=== PATIENT | female | born 1970 | race Caucasian/White ===

== ENCOUNTER → 2022-08-08 16:12 | Outpatient (CLI) | payer BC, SELFPAY | PROVIDERS: PCP Physician Assistant; Visit Provider Physician Assistant | DX: Z20.822 Contact with and (suspected) exposure to COVID-19 (principal); R05.8 Other specified cough; J02.9 Acute pharyngitis, unspecified | CPT/HCPCS: C9803; U0003; U0005 ==

== ENCOUNTER → 2022-11-13 10:02 | Outpatient (CLI) | payer BC, SELFPAY ==
[2022-11-13 16:05] LABS: Alanine Aminotransferase 29 U/L (12-78); Albumin Level 4.5 g/dl (3.5-5.0); Albumin/Globulin Ratio 1.7 (1.1-1.8); Alkaline Phosphatase 93 U/L (38-126); Anion Gap 12.6 mEq/L (5-15); Aspartate Amino Transferase 29 U/L (14-36); Bilirubin,Total 0.5 mg/dl (0.2-1.3); Blood Urea Nitrogen 16 mg/dl (7-17); Carbon Dioxide 25 mmol/L (22.0-30.0); Chloride 104 mmol/L (98-107); Chol/HDL Ratio 5.8 (1-3.5); Cholesterol 272 mg/dl (140-200); Estimated Glomerular Filt Rate 76 ml/min (>60); GFR (African American) 92 ML/MIN (>60); Globulin 2.7 g/dL (1.3-3.2); Glucose 103 mg/dl (74-100); HDL Cholesterol 47 mg/dl (40-60); Potassium 4.6 mmoL/L (3.5-5.1); Sodium 137 mmol/L (136-145); Total Protein,Serum 7.2 g/dl (6.3-8.2); Triglycerides 174 mg/dl (30-150); VLDL Cholesterol 35 mg/dL (0-40)
[2022-11-13 16:16] LABS: Direct LDL Cholesterol 185.78 mg/dL (100-129)
[2022-11-13 16:26] LABS: 25-OH Vitamin D, Total 17.7 ng/mL (30-100)
[2022-11-13 16:39] LABS: Thyroid Stimulating Hormone 1.16 uIU/mL (0.465-4.68)
[2022-11-13 17:07] LABS: Basophils # 0.1 K/mm3 (0-0.2); Basophils % 1.3 % (0.1-2.0); Eosinophils # 0.5 K/mm3 (0.0-0.4); Eosinophils % 5.6 % (0.1-12.0); Hematocrit 42.8 % (37.0-47.0); Hemoglobin 13.3 g/dL (12.2-16.2); Lymphocytes # 2.3 K/mm3 (0.7-4.5); Lymphocytes % 25.9 % (10-50); Mean Corpuscular Hemoglobin 26.9 pg (27.0-31.2); Mean Corpuscular Volume 86.8 fl (81-99); Mean Platelet Volume 8.4 fl (7.4-10.4); Monocytes # 0.6 K/mm3 (0.1-1.0); Monocytes % 6.5 % (1.7-9.3); Neutrophils # 5.4 K/mm3 (1.8-7.8); Neutrophils % 60.7 % (37.0-80.0); Platelet Count 509 K/mm3 (142-424); Red Blood Count 4.93 M/mm3 (4.20-5.40); Red Cell Distribution Width 14.7 % (11.5-17.5); White Blood Count 8.8 K/mm3 (4.8-10.8)
[2022-11-15 14:27] LABS: Peripheral Smear Review Scanned Results
== END ==
LOC: LAB.DROPOF 15:28
PROVIDERS: PCP Physician Assistant; Visit Provider Physician Assistant
DX: E55.9 Vitamin D deficiency, unspecified (principal); E66.9 Obesity, unspecified; Z68.38 Body mass index [BMI] 38.0-38.9, adult
CPT/HCPCS: 80053; 80061; 82306; 84443; 85025

== ENCOUNTER → 2023-01-16 08:36 | Outpatient (CLI) | payer BC, SELFPAY ==
[2023-01-16 09:39] LABS: Basophils # 0.1 K/mm3 (0-0.2); Eosinophils # 0.4 K/mm3 (0.0-0.4); Hematocrit 39.2 % (37.0-47.0); Hemoglobin 12.4 g/dL (12.2-16.2); Lymphocytes % 15.2 % (10-50); Mean Corpuscular HGB Conc 31.7 g/dL (31.8-35.4); Mean Corpuscular Hemoglobin 28.1 pg (27.0-31.2); Mean Corpuscular Volume 88.5 fl (81-99); Mean Platelet Volume 7.2 fl (7.4-10.4); Monocytes # 0.7 K/mm3 (0.1-1.0); Monocytes % 5.2 % (1.7-9.3); Neutrophils % 75.6 % (37.0-80.0); Platelet Count 489 K/mm3 (142-424); Red Blood Count 4.43 M/mm3 (4.20-5.40); Red Cell Distribution Width 14.9 % (11.5-17.5); White Blood Count 13.2 K/mm3 (4.8-10.8)
[2023-01-16 10:11] LABS: Hemoglobin A1C 6.8 % (4.0-6.0)
[2023-01-16 10:20] LABS: Alanine Aminotransferase 16 U/L (12-78); Albumin Level 3.6 g/dl (3.5-5.0); Albumin/Globulin Ratio 1.5 (1.1-1.8); Alkaline Phosphatase 92 U/L (38-126); Anion Gap 7.3 mEq/L (5-15); Aspartate Amino Transferase 19 U/L (14-36); Bilirubin,Total 0.4 mg/dl (0.2-1.3); Blood Urea Nitrogen 9 mg/dl (7-17); Calcium 9.2 mg/dl (8.4-10.2); Carbon Dioxide 27 mmol/L (22.0-30.0); Chloride 103 mmol/L (98-107); Chol/HDL Ratio 5.2 (1-3.5); Cholesterol 218 mg/dl (140-200); Estimated Glomerular Filt Rate 88 ml/min (>60); GFR (African American) 106 ML/MIN (>60); Globulin 2.4 g/dL (1.3-3.2); Glucose 112 mg/dl (74-100); HDL Cholesterol 42 mg/dl (40-60); Potassium 4.3 mmoL/L (3.5-5.1); Sodium 133 mmol/L (136-145); Triglycerides 226 mg/dl (30-150); VLDL Cholesterol 45 mg/dL (0-40)
[2023-01-16 10:32] LABS: Direct LDL Cholesterol 145.27 mg/dL (100-129)
== END ==
LOC: LAB 08:37
PROVIDERS: PCP Emergency Medicine; Visit Provider Nurse Practitioner Family
DX: R73.9 Hyperglycemia, unspecified (principal); Z79.899 Other long term (current) drug therapy
CPT/HCPCS: 36415; 80053; 80061; 83036; 85025

== ENCOUNTER → 2023-03-07 09:10 | Outpatient (CLI) | payer BC, SELFPAY ==
[2023-03-07 09:50] LABS: Basophils # 0.1 K/mm3 (0-0.2); Basophils % 1.3 % (0.1-2.0); Eosinophils # 0.6 K/mm3 (0.0-0.4); Eosinophils % 6.4 % (0.1-12.0); Hematocrit 37.9 % (37.0-47.0); Hemoglobin 12.1 g/dL (12.2-16.2); Lymphocytes # 2.6 K/mm3 (0.7-4.5); Lymphocytes % 29.6 % (10-50); Mean Corpuscular HGB Conc 31.9 g/dL (31.8-35.4); Mean Corpuscular Hemoglobin 27.9 pg (27.0-31.2); Mean Corpuscular Volume 87.6 fl (81-99); Mean Platelet Volume 7.1 fl (7.4-10.4); Monocytes # 0.5 K/mm3 (0.1-1.0); Monocytes % 5.1 % (1.7-9.3); Neutrophils # 5.1 K/mm3 (1.8-7.8); Neutrophils % 57.6 % (37.0-80.0); Platelet Count 519 K/mm3 (142-424); Red Blood Count 4.33 M/mm3 (4.20-5.40); Red Cell Distribution Width 14.5 % (11.5-17.5); White Blood Count 8.8 K/mm3 (4.8-10.8)
[2023-03-07 10:55] LABS: Iron 54 ug/dL (37-170)
[2023-03-07 11:04] LABS: Total Iron Binding Capacity 324 ug/dL (265-497)
== END ==
LOC: LAB 09:10
PROVIDERS: PCP Emergency Medicine; Visit Provider Internal Medicine Medical Oncology
DX: D50.9 Iron deficiency anemia, unspecified (principal)
CPT/HCPCS: 36415; 81270; 82728; 83540; 83550; 85025

== ENCOUNTER → 2023-06-05 23:17 | Outpatient (CLI) | payer BC, SELFPAY ==
[2023-06-07 10:12] LABS: FSH 47.9 mIU/mL (.); LH 31.4 mIU/mL (.); Progesterone 0.7 ng/mL (.)
[2023-06-13 14:21] LABS: Estrogen 94 pg/mL (.)
== END ==
LOC: LAB.DROPOF 23:17
PROVIDERS: PCP Emergency Medicine; Visit Provider Emergency Medicine
DX: R53.83 Other fatigue (principal)
CPT/HCPCS: 82672; 83001; 83002; 84144

== ENCOUNTER 2024-01-26 22:49 | Outpatient (CLI) | payer OTHER, SELFPAY ==
[2024-01-26 18:47] LABS: Basophils # 0.1 K/mm3 (0-0.2); Basophils % 1.1 % (0.1-2.0); Eosinophils # 0.5 K/mm3 (0.0-0.4); Eosinophils % 5.7 % (0.1-12.0); Hematocrit 44.1 % (37.0-47.0); Hemoglobin 13.5 g/dL (12.2-16.2); Lymphocytes # 2.1 K/mm3 (0.7-4.5); Lymphocytes % 23.4 % (10-50); Mean Corpuscular HGB Conc 30.7 g/dL (31.8-35.4); Mean Corpuscular Hemoglobin 29.1 pg (27.0-31.2); Mean Corpuscular Volume 94.9 fl (81-99); Mean Platelet Volume 8.8 fl (7.4-10.4); Monocytes # 0.5 K/mm3 (0.1-1.0); Monocytes % 5.1 % (1.7-9.3); Neutrophils # 5.7 K/mm3 (1.8-7.8); Neutrophils % 64.7 % (37.0-80.0); Platelet Count 498 K/mm3 (142-424); Red Blood Count 4.65 M/mm3 (4.20-5.40); Red Cell Distribution Width 14.4 % (11.5-17.5); White Blood Count 8.9 K/mm3 (4.8-10.8)
[2024-01-26 18:52] LABS: Chloride 110 mmol/L (98-107); Potassium 3.8 mmoL/L (3.5-5.1); Sodium 138 mmol/L (136-145)
[2024-01-26 18:54] LABS: Blood Urea Nitrogen 12 mg/dl (7-17); Estimated Glomerular Filt Rate 75 ml/min (>60); GFR (African American) 91 ML/MIN (>60)
[2024-01-26 18:55] LABS: Alanine Aminotransferase 32 U/L (12-78); Albumin/Globulin Ratio 1.6 (1.1-1.8); Alkaline Phosphatase 99 U/L (38-126); Anion Gap 9.8 mEq/L (5-15); Aspartate Amino Transferase 32 U/L (14-36); Bilirubin,Total 0.4 mg/dl (0.2-1.3); Calcium 10.4 mg/dl (8.4-10.2); Carbon Dioxide 22 mmol/L (22.0-30.0); Cholesterol 264 mg/dl (140-200); Globulin 2.5 g/dL (1.3-3.2); Glucose 188 mg/dl (74-100); HDL Cholesterol 33 mg/dl (40-60); Total Protein,Serum 6.5 g/dl (6.3-8.2); Triglycerides 159 mg/dl (30-150); VLDL Cholesterol 32 mg/dL (0-40)
[2024-01-26 19:22] LABS: Thyroid Stimulating Hormone 0.88 uIU/mL (0.465-4.68)
== END 2024-01-26 23:59 ==
LOC: LAB.DROPOF 22:49
PROVIDERS: PCP Family Medicine; Visit Provider Family Medicine
DX: E11.9 Type 2 diabetes mellitus without complications (principal); E55.9 Vitamin D deficiency, unspecified; Z68.35 Body mass index [BMI] 35.0-35.9, adult; Z79.84 Long term (current) use of oral hypoglycemic drugs; Z79.85 Long-term (current) use of injectable non-insulin antidiabetic drugs
CPT/HCPCS: 80053; 80061; 82306; 84443; 85025

== ENCOUNTER 2024-06-29 19:55 | Outpatient (CLI) | payer OTHER, SELFPAY ==
[2024-06-29 22:03] LABS: Hemoglobin A1C 6.4 % (4.0-6.0)
[2024-06-29 22:13] LABS: Alanine Aminotransferase 30 U/L (12-78); Albumin Level 3.7 g/dl (3.5-5.0); Albumin/Globulin Ratio 1.2 (1.1-1.8); Alkaline Phosphatase 81 U/L (38-126); Anion Gap 12.2 mEq/L (5-15); Aspartate Amino Transferase 28 U/L (14-36); Bilirubin,Total 0.4 mg/dl (0.2-1.3); Blood Urea Nitrogen 11 mg/dl (7-17); Calcium 10.1 mg/dl (8.4-10.2); Carbon Dioxide 21 mmol/L (22.0-30.0); Chloride 108 mmol/L (98-107); Chol/HDL Ratio 7.5 (1-3.5); Cholesterol 278 mg/dl (140-200); Estimated Glomerular Filt Rate 65 ml/min (>60); GFR (African American) 79 ML/MIN (>60); Glucose 116 mg/dl (74-100); HDL Cholesterol 37 mg/dl (40-60); Potassium 4.2 mmoL/L (3.5-5.1); Sodium 137 mmol/L (136-145); Total Protein,Serum 6.7 g/dl (6.3-8.2); Triglycerides 134 mg/dl (30-150); VLDL Cholesterol 27 mg/dL (0-40)
[2024-06-29 22:25] LABS: Direct LDL Cholesterol 214.72 mg/dL (100-129)
[2024-06-29 22:30] LABS: 25-OH Vitamin D, Total 17.5 ng/mL (30-100)
[2024-06-29 23:04] LABS: Vitamin B12 387 pg/mL (239-931)
== END 2024-06-29 23:59 | disposition home or self-care (01) ==
LOC: LAB.DROPOF 19:57
PROVIDERS: PCP Nurse Practitioner; Visit Provider Nurse Practitioner
DX: E78.5 Hyperlipidemia, unspecified (principal); I10 Essential (primary) hypertension; E55.9 Vitamin D deficiency, unspecified; Z68.33 Body mass index [BMI] 33.0-33.9, adult; E66.9 Obesity, unspecified; E11.9 Type 2 diabetes mellitus without complications; Z79.84 Long term (current) use of oral hypoglycemic drugs; Z79.85 Long-term (current) use of injectable non-insulin antidiabetic drugs
CPT/HCPCS: 80053; 80061; 82306; 82607; 83036

== ENCOUNTER 2024-08-16 15:35 | Outpatient (CLI) | payer OTHER, SELFPAY ==
[2024-08-16 17:50] LABS: Basophils # 0.1 K/mm3 (0-0.2); Eosinophils # 0.3 K/mm3 (0.0-0.4); Eosinophils % 3.2 % (0.1-12.0); Hemoglobin 9.1 g/dL (12.2-16.2); Lymphocytes # 2.5 K/mm3 (0.7-4.5); Lymphocytes % 24.7 % (10-50); Mean Corpuscular HGB Conc 30.3 g/dL (31.8-35.4); Mean Corpuscular Hemoglobin 25.2 pg (27.0-31.2); Mean Corpuscular Volume 83.1 fl (81-99); Monocytes # 0.6 K/mm3 (0.1-1.0); Monocytes % 6.1 % (1.7-9.3); Neutrophils # 6.6 K/mm3 (1.8-7.8); Platelet Count 727 K/mm3 (142-424); Red Blood Count 3.62 M/mm3 (4.20-5.40); Red Cell Distribution Width 15.3 % (11.5-17.5); White Blood Count 10.2 K/mm3 (4.8-10.8)
== END 2024-08-16 23:59 | disposition home or self-care (01) ==
LOC: LAB.DROPOF 08-17 13:41
PROVIDERS: PCP Nurse Practitioner; Visit Provider Nurse Practitioner
DX: N92.1 Excessive and frequent menstruation with irregular cycle (principal)
CPT/HCPCS: 85025

== ENCOUNTER 2024-08-19 13:57 | Outpatient (CLI) | payer OTHER, SELFPAY ==
--- NOTE | 2024-08-19 13:58 | US_ITS ---
PROCEDURE: US TRANSVAGINAL CLINICAL INDICATION: menometrorrhagia COMPARISON: No exams were available for comparison FINDINGS: Transvaginal sonographic images of the pelvis were obtained. UTERUS: 11.0cm x 6.7cmx 6.9 cm with a combined endometrial thickness of 16.6mm. The endometrium appears thickened and heterogenous and the basalis appears very irregular. Possible adenomyosis or hyperplasia. A scar is seen. There is a nabothian cyst in the cervix measuring 1.1 cm. Fibroid 1. Is an anterior fibroid measuring 2.7 cm x 2.4 cm x 2.3 cm. Fibroid 2. Is a posterior fibroid that measures 2.1 cm x 1.6 cm x 1.7 cm. Fibroid 3. Is an anterior fibroid measuring 2 cm x 1.6 cm x 1.9 cm There is a thickened area that could represent a small fibroid anterior to the cervix. LEFT OVARY: 2.2cmx 1.9 cmx1.3cm with a volume of 2.8ml. Left ovary appears atrophic and is seen transabdominally. RIGHT OVARY: 1.9 cmx 1.8 cmx1.5 cm with a volume of 2.7ml. The right ovary is seen transabdominally. Within the right ovary is a follicle measuring 1.3 cm x 1.9 cm x 1.1 cm. Both ovaries are seen and appear normal. They are only seen transabdominally. Doppler flow to both ovaries are seen. There is no fluid in the cul-de-sac. IMPRESSION: 1. Anteverted, enlarged uterus. There are at least 3 fibroids. The largest measures 2.7 cm. 2. There is a an area of thickening anterior to the cervix that could represent a small fibroid. 3. The endometrium is markedly thickened and measures up to 16.6 mm. The basalis is irregular and could represent adenomyosis versus hyperplasia. Suggest endometrial sampling. 4. Both ovaries are seen transabdominally and appear normal. There is a follicle on the right ovary measuring 1.9 cm. 5. There is no fluid in the cul-de-sac. Dictated by: Sen Hernandez MD 08/20/2024 09:28 Sen Hernandez MD in OV 08/20/2024 09:28
== END 2024-08-19 23:59 | disposition home or self-care (01) ==
LOC: RAD 13:58
PROVIDERS: PCP Nurse Practitioner; Visit Provider Nurse Practitioner
DX: N92.1 Excessive and frequent menstruation with irregular cycle (principal)
CPT/HCPCS: 76830

== ENCOUNTER 2024-08-24 16:14 | Outpatient (CLI) | payer OTHER, SELFPAY ==
[2024-08-25 23:03] LABS: Neisseria gonorrhoeae, NAA Negative (Negative)
== END 2024-08-24 23:59 | disposition home or self-care (01) ==
LOC: LAB.DROPOF 16:15
PROVIDERS: PCP Obstetrics & Gynecology; Visit Provider Obstetrics & Gynecology
DX: N92.1 Excessive and frequent menstruation with irregular cycle (principal); Z01.419 Encounter for gynecological examination (general) (routine) without abnormal findings
CPT/HCPCS: 87491; 87591

== ENCOUNTER 2025-01-05 11:00 | Outpatient (CLI) | payer OTHER, SELFPAY ==
[2025-01-05 19:01] LABS: Basophils # 0.1 K/mm3 (0-0.2); Eosinophils # 0.4 K/mm3 (0.0-0.4); Eosinophils % 11.5 % (0.1-12.0); Hematocrit 33.6 % (37.0-47.0); Lymphocytes # 0.6 K/mm3 (0.7-4.5); Lymphocytes % 17.6 % (10-50); Mean Corpuscular HGB Conc 26.8 g/dL (31.8-35.4); Mean Corpuscular Hemoglobin 20.6 pg (27.0-31.2); Mean Corpuscular Volume 76.9 fl (81-99); Mean Platelet Volume 8.7 fl (7.4-10.4); Monocytes # 0.4 K/mm3 (0.1-1.0); Monocytes % 12.7 % (1.7-9.3); Neutrophils # 1.9 K/mm3 (1.8-7.8); Neutrophils % 55.9 % (37.0-80.0); Platelet Count 515 K/mm3 (142-424); Red Blood Count 4.37 M/mm3 (4.20-5.40); Red Cell Distribution Width 22.5 % (11.5-17.5); White Blood Count 3.5 K/mm3 (4.8-10.8)
[2025-01-05 19:37] LABS: Creatinine,Urine Random 212 mg/dL (Not Estab.)
[2025-01-05 19:43] LABS: Microalbumin/Creatinine Ratio 140.4
[2025-01-05 19:45] LABS: Albumin Level 4.1 g/dl (3.5-5.0); Chloride 108 mmol/L (98-107); Potassium 4.4 mmoL/L (3.5-5.1); Sodium 138 mmol/L (136-145)
[2025-01-05 19:48] LABS: Alanine Aminotransferase 23 U/L (12-78); Albumin/Globulin Ratio 1.7 (1.1-1.8); Alkaline Phosphatase 78 U/L (38-126); Anion Gap 10.4 mEq/L (5-15); Aspartate Amino Transferase 23 U/L (14-36); Bilirubin,Total 0.3 mg/dl (0.2-1.3); Blood Urea Nitrogen 14 mg/dl (7-17); Calcium 10.3 mg/dl (8.4-10.2); Carbon Dioxide 24 mmol/L (22.0-30.0); Cholesterol 243 mg/dl (140-200); Estimated Glomerular Filt Rate 75 ml/min (>60); GFR (African American) 90 ML/MIN (>60); Globulin 2.4 g/dL (1.3-3.2); Glucose 99 mg/dl (74-100); Total Protein,Serum 6.5 g/dl (6.3-8.2); Triglycerides 156 mg/dl (30-150); VLDL Cholesterol 31 mg/dL (0-40)
[2025-01-05 19:49] LABS: HDL Cholesterol 49 mg/dl (40-60); Hemoglobin A1C 5.3 % (4.0-6.0)
[2025-01-05 20:03] LABS: Direct LDL Cholesterol 151.72 mg/dL (100-129)
[2025-01-05 20:23] LABS: HIV Combo NEGATIVE (Negative)
[2025-01-05 20:25] LABS: Thyroid Stimulating Hormone 1.09 uIU/mL (0.465-4.68)
[2025-01-05 20:30] LABS: Hepatitis C Ab Qual. W/ RFX NEGATIVE (Negative)
[2025-01-05 20:54] LABS: 25-OH Vitamin D, Total 26.3 ng/mL (30-100)
== END 2025-01-05 23:59 | disposition home or self-care (01) ==
LOC: LAB.DROPOF 01-06 10:21
PROVIDERS: PCP Nurse Practitioner; Visit Provider Nurse Practitioner
DX: E11.9 Type 2 diabetes mellitus without complications (principal); I10 Essential (primary) hypertension; E78.5 Hyperlipidemia, unspecified; E55.9 Vitamin D deficiency, unspecified; E66.9 Obesity, unspecified; R30.0 Dysuria
CPT/HCPCS: 80053; 80061; 82043; 82306; 82570; 83036; 84443; 85025; 86803; 87086; 87389

== ENCOUNTER 2025-02-09 10:22 | Emergency (ER) | payer OTHER, SELFPAY ==
[2025-02-09 10:34] LABS: Microscopic, Urine URINE MICROSCOPIC (MICROSCOPIC)
[2025-02-09 10:36] VITALS: BP 135/88; PULSE 75; RESP 20; TEMP 36.6; O2SAT 99; BMI 30.4
[2025-02-09 10:36] LABS: Appearance,Urine CLEAR (Clear); Bilirubin,Urine Negative (Negative); Blood, Urine Negative (Negative); Color,Urine YELLOW (Yellow); Glucose,Urine (UA) Negative (Negative); Ketones,Urine Negative (Negative); Leukocyte Esterase,Urine Negative (Negative); Nitrate,Urine Negative (Negative); Protein,Urine Negative (Negative); Urobilinogen,Urine 0.2 EU/dl (0.2)
[2025-02-09 10:45] LABS: Bacteria,Urine Trace /lpf; Squamous Epithelial Cell,Urine Occasional #/hpf (0-5); WBC,Urine Occasional #/hpf (0-3)
--- NOTE | 2025-02-09 11:12 | ED_ITS ---
Discharge Plan Disposition Patient Disposition: Home, Self-Care Prescriptions Prescriptions: New dexamethasone 6 mg tablet 6 mg PO .every other day Qty: 2 0RF Rx Instructions: 6 mg orally every other day in the morning starting 02/11 lidocaine 5 % adhesive patch,medicated 1 patch topical DAILY Qty: 30 0RF Rx Instructions: leave on most painful area for up to 12 hrs No Action metformin 500 mg tablet 500 mg PO DAILY Qty: 90 2RF ciprofloxacin HCl 500 mg tablet 500 mg PO BID 7 Days Qty: 14 0RF Mounjaro 7.5 mg/0.5 mL pen injector 7.5 mg SQ WEEKLY Qty: 2 2RF rosuvastatin 20 mg tablet 20 mg PO DAILY Qty: 30 2RF ibuprofen 800 mg tablet See Rx Instructions .ROUTE .COMPLEX Qty: 90 2RF Dose Instruction: TAKE 1 TABLET BY MOUTH EVERY 8 HOURS NEEDED FOR PAIN Rx Instructions: TAKE 1 TABLET BY MOUTH EVERY 8 HOURS NEEDED FOR PAIN cholecalciferol (vitamin D3) 125 mcg (5,000 unit) tablet 125 mcg PO DAILY Qty: 30 5RF ezetimibe 10 mg tablet 10 mg PO DAILY Qty: 30 2RF Referrals Follow up/Referrals: Rachele Lopez APRN [Primary Care Provider] - See instructions Activity Restrictions/Add. Instructions Additional Instructions/Restrictions: Dexamethasone every other day on the and . Be sure to check sugars while on these meds. Lidocaine patches as needed. Call your family doctor to establish care for this visit to the emergency department and schedule follow-up within 48 hours to ensure improvement. If you have any worsening of your condition or any other concerning signs or symptoms, return to the emergency department or your primary care doctor for further evaluation. Clinical Impressions Clinical Impression: Thoracic radiculopathy Print Language Print Language: Kazakh Discharge ED Provider: Smooth Ramirez General Adult HPI General Chief complaint: Recheck/Abnormal Lab/Rx Stated complaint: Post op back pain from injection site Time Seen by Provider: 02/09/25 10:36 Mode of Arrival: Ambulatory Source of Information: Patient Description of Symptoms (Recalled from ER Triage Doc. by RN): pt had open hysterectomy at on and was given an epidural for pain control and is now experiencing pain at injection site and to the right of it, pt skin has irritation from adhesives History of Present Illness HPI narrative: Please note that above description of symptoms, in this electronic medical record under categorization of recalled from ER triage doctor by RN are reflective of an initial nursing assessment, however, is not reflective of my full history and physical exam that was personally taken and clarified. Consequentially, this preceding description of symptoms, which may include the patient's categorized chief complaint in the EMR, do not reflect my personal clinical impression, and the ultimate description of history of present illness and patient stated complaints should be deferred to this section of the note. Unless stated otherwise or congruent with this section of the note, additional signs, symptoms, or incongruence should be interpreted as inaccurate with my clinical impression. Related Data Previous Rx's ?Medication ?Instructions ?Recorded metformin 500 mg tablet 500 mg PO DAILY #90 tabs 07/01/24 rosuvastatin 20 mg tablet 20 mg PO DAILY #30 tabs 09/21/24 ibuprofen 800 mg tablet See Rx Instructions .Route 12/23/24 .COMPLEX #90 tabs ciprofloxacin HCl 500 mg tablet 500 mg PO BID 7 days #14 tabs 01/05/25 tirzepatide 7.5 mg/0.5 mL 7.5 mg (0.5 mL) SQ WEEKLY #2 mL 01/05/25 subcutaneous pen injector (Mounjaro) cholecalciferol (vitamin D3) 125 125 mcg PO DAILY #30 tabs 01/06/25 mcg (5,000 unit) tablet ezetimibe 10 mg tablet 10 mg PO DAILY #30 tabs 01/06/25 dexamethasone 6 mg tablet 6 mg PO .every other day #2 tabs 02/09/25 lidocaine 5 % topical patch 1 patch topical DAILY #30 ea 02/09/25 Allergies Allergy/AdvReac Type Severity Reaction Status Date / Time No Known Allergies Allergy Verified 01/05/25 09:50 [facility] Disclaimer: The information contained in this section may have been updated after the patient was seen, as this information can be updated by other users. Medical History Menometrorrhagia TMJ tenderness, right Screening for malignant neoplasm of colon declined (~04/26/24) Breast screening declined (~04/26/24) Vitamin D deficiency Hyperlipidemia Type 2 diabetes mellitus without complications Sore throat Left serous otitis media Surgical History Hx of section Hx of eye surgery Social History (Updated 01/05/25 @ 09:51 by Sarah Guerrero MA) Smoking Status: Never smoker second hand exposure: No alcohol intake: never current occupational status: employed Travel in the last 8 weeks: None household members: spouse housing: house Have you lived/traveled outside [place] in past 30 days?: No Contact w/someone who lives/traveled outside US past 30 days?: No Exposure to someone with infectious disease in past 14 days?: No Do you have a fever (greater than 100.4 F or 38 C)?: No Have you tested positive for COVID-19: No Exposed to someone with COVID-19 in past 14 days?: No Do you have a sore throat?: No Do you have a cough?: No Do you have any weakness?: No Do you have any diarrhea?: No Are you experiencing any unusual bleeding?: No Do you have any muscle aches/pain?: No Do you have any abdominal pain?: No Are you experiencing loss of taste or smell?: No Other Medical History Have you received the Pneumonia Vaccine: No ROS Obtained: Yes All systems reviewed & no additional complaints except as documented Physical Exam General General appearance: alert Head Head exam: atraumatic and normocephalic Eye Eye exam: Present normal appearance, PERRL and EOMI Neck Neck exam: Present normal inspection, full ROM and trachea midline Respiratory Respiratory exam: Absent respiratory distress, wheezes, stridor, accessory muscle use or prolonged expiratory phase Cardiovascular Cardiovascular exam: Present other (Pulses equal symmetric in upper and lower extremities) Abdominal Exam Abdominal exam: Present soft; Absent distention, tenderness or pulsatile mass Extremities Exam Extremities exam: Absent edema Neurological Exam Neurological exam: Present alert, oriented X3 and CN II-XII intact; Absent motor sensory deficit Skin Skin exam: Present warm and dry; Absent diaphoresis or erythema Medical Decision Making Medical Records Medical records reviewed: Yes I reviewed the patient's medical records. Screening: Per USPSTF and CDC recommendations, given the prevalence of disease in our region, it is our hospital?s policy to screen for HIV and viral Hepatitis for all patients aged 18 and over and those with ongoing risk factors. Luis Inquiry Pt receiving controlled substance: No Luis was queried for this patient: No Vital Signs: 02/09/25 10:36 Temperature 97.9 F Temperature Source Oral Pulse Rate [Left Radial] 75 Respiratory Rate 20 Blood Pressure [Right Arm] 135/88 Blood Pressure Mean [Right Arm] 103 02 Sat by Pulse Oximetry 99 Oxygen Delivery Method Room Air Lab Data Lab Results 02/09/25 10:28: Urine Color Yellow, Urine Appearance Clear, Urine pH 6.0, Ur Specific [place] 1.010, Urine Protein Negative, Urine Glucose (UA) Negative, Urine Ketones Negative, Urine Blood Negative, Urine Nitrate Negative, Urine Bilirubin Negative, Urine Urobilinogen 0.2, Ur Leukocyte Esterase Negative, Urine RBC None, Urine WBC Occasional, Ur Squamous Epith Cells Occasional, Urine Bacteria Trace Orders (Tests/Meds): ED MEDICATIONS Discontinued Medications Generic Name Dose Route Start Last Admin Trade Name Freq PRN Reason Stop Dose Admin Dexamethasone 10 mg 02/09/25 11:13 02/09/25 11:22 Dexamethasone 4mg Tablet PO 02/09/25 11:14 10 mg ONCE ONE Administration Lidocaine 1 each 02/09/25 11:13 02/09/25 11:22 Lidocaine 5% Transdermal Patch TD 02/09/25 11:14 1 each ONCE ONE Administration ORDERS Category Date Time Status UA [Urinalysis and Microscopic] Stat Lab 02/09/25 10:28 Completed Medical Decision Narrative: 54-year-old female history of hysterectomy last week presenting with back pain and radiating pain. States that as soon as she got the epidural, she had immediate, shooting pain on the right side of her spine radiating around to her abdomen and sometimes into her pelvis. After epidural medication started, was not having pain, then since the epidural is worn off, the pain is come back. Worse with changes of motion, better with application of pressure. No bowel or bladder dysfunction, fevers, chills, lower extremity weakness, saddle/groin anesthesia, or any other concerns. history was obtained via conversation with patient and outside hospital chart review. On arrival, patient hemodynamically stable, alert, oriented x4, appropriate, GCS 15, moving all extremities spontaneously, pupils equal and reactive to light. Full physical exam performed and significant for very clinically well-appearing female no acute distress. Ambulatory, neurovascular intact. No midline spinal tenderness, but she does have subjective radiating pain a couple of levels below insertion site of epidural site on thoracic spine radiating around to the right. Better with application of pressure. Bilateral breath sounds normal. Differential includes radiculopathy, less likely to be epidural hematoma, epidural abscess, pneumothorax, among others. Because patient so clinically well-appearing, patient given Decadron for inflammatory nerve pain as well as lidocaine patches for radiculopathy. Every other day Decadron sent to pharmacy and recommend close outpatient follow-up with her surgery team. She voiced her understanding and was agreeable this plan. Given patient presentation, workup, history, this most likely represents thoracic radiculopathy after accidental thoracic nerve injury during epidural procedure. Close return precautions were discussed. Because patient at baseline without signs or symptoms of clinical decompensation, deemed appropriate for discharge. Results were relayed to patient who voiced understanding and were agreeable to outpatient management and follow up. I discussed my clinical impression with patient and answered all questions. At this time, the evidence for any other entities in the differential is insufficient to warrant any further testing or ED observation. This was explained as well. Advisory was given that persistent or worsening symptoms require further evaluation. I confirmed the understanding of this di scussion. Clinical Nurse Occupational Medicine disclaimer Much of this encounter note is an electronic business administrator spoken language to printed text. Electronic business administrator of the spoken language may permit errors. Although I have reviewed the note, some errors may still exist. Critical Care Critical Care Time Critical Care Time: No
[2025-02-09] MEDS: DEXAMETHASONE 4MG TABLET 10 MG PO (11:22)
[2025-02-09] MEDS: LIDOCAINE 5% TRANSDERMAL PATCH 1 EACH TD (11:22)
[2025-02-09 11:29] VITALS: BP 128/79; PULSE 79; RESP 20; TEMP 36.7; O2SAT 98
== END 2025-02-09 11:30 | disposition home or self-care (01) ==
PROVIDERS: Emergency Provider Emergency Medicine; PCP Nurse Practitioner
DX: M54.14 Radiculopathy, thoracic region (principal)
CPT/HCPCS: 81001; 99283; J8540

== ENCOUNTER 2025-02-12 07:29 | Emergency (ER) | payer OTHER, SELFPAY ==
[2025-02-12] VITALS (11 sets, daily range): BP systolic 134–166; BP diastolic 82–96; PULSE 62–83; RESP 12–20; TEMP 36.4–36.6; O2SAT 97–99; BMI 30.2
--- NOTE | 2025-02-12 07:46 | CT_ITS ---
PROCEDURE INFORMATION: Exam: CT Thoracic Spine Without Contrast Exam date and time: 02/12/2025 8:32 AM Age: 54 years old Clinical indication: Pain in thoracic spine; Additional info: Difficulty breathing, back/flank pn following alvarado TECHNIQUE: Imaging protocol: Computed tomography of the thoracic spine without contrast. Radiation optimization: All CT scans at this facility use at least one of these dose optimization techniques: automated exposure control; mA and/or kV adjustment per patient size (includes targeted exams where dose is matched to clinical indication); or iterative reconstruction. COMPARISON: No relevant prior studies available. FINDINGS: Bones/joints: No acute fracture. Normal alignment. T1-T2: No significant disc bulge or herniation. No severe spinal canal stenosis. No significant neural foraminal narrowing. T2-T3: No significant disc bulge or herniation. No severe spinal canal stenosis. No significant neural foraminal narrowing. T3-T4: No significant disc bulge or herniation. No severe spinal canal stenosis. No significant neural foraminal narrowing. T4-T5: No significant disc bulge or herniation. No severe spinal canal stenosis. No significant neural foraminal narrowing. T5-T6: No significant disc bulge or herniation. No severe spinal canal stenosis. No significant neural foraminal narrowing. T6-T7: No significant disc bulge or herniation. No severe spinal canal stenosis. No significant neural foraminal narrowing. T7-T8: No significant disc bulge or herniation. No severe spinal canal stenosis. No significant neural foraminal narrowing. T8-T9: No significant disc bulge or herniation. No severe spinal canal stenosis. No significant neural foraminal narrowing. T9-T10: No significant disc bulge or herniation. No severe spinal canal stenosis. No significant neural foraminal narrowing. T10-T11: No significant disc bulge or herniation. No severe spinal canal stenosis. No significant neural foraminal narrowing. T11-T12: No significant disc bulge or herniation. No severe spinal canal stenosis. No significant neural foraminal narrowing. T12-L1: No significant disc bulge or herniation. No severe spinal canal stenosis. No significant neural foraminal narrowing. Soft tissues: Unremarkable. IMPRESSION: No acute findings.
--- NOTE | 2025-02-12 07:46 | CT_ITS ---
PROCEDURE INFORMATION: Exam: CT Abdomen And Pelvis With Contrast Exam date and time: 02/12/2025 8:52 AM Age: 54 years old Clinical indication: Abdominal pain; Prior surgery; Surgery date: 3-7 days post-operative; Surgery type: Hysterectomy; Additional info: Difficulty breathing, back/flank pn following alvarado TECHNIQUE: Imaging protocol: Computed tomography of the abdomen and pelvis with contrast. 3D rendering (Not supervised by radiologist): MIP and/or 3D reconstructed images were created by the technologist. Radiation optimization: All CT scans at this facility use at least one of these dose optimization techniques: automated exposure control; mA and/or kV adjustment per patient size (includes targeted exams where dose is matched to clinical indication); or iterative reconstruction. Contrast material: ISOVUE; Contrast volume: 70 ml; Contrast route: IV; COMPARISON: CT LUMBAR SPINE WO CON 02/12/2025 8:48 AM FINDINGS: Liver: There is a hypervascular lesion in the dome of the liver measuring 1.6 x 1.5 cm highly suggestive of a hemangioma. This is best seen on image 13 of series 4. Gallbladder and biliary ducts: Normal. No calcified stones. No ductal dilation. Pancreas: Normal. No ductal dilation. Spleen: Normal. No splenomegaly. Adrenal glands: Normal. No mass. Kidneys and ureters: Multiple bilateral parapelvic renal cysts are identified. There is mild fullness of the proximal collecting systems without evidence of a ureteral stone. Stomach and bowel: There is no bowel obstruction. There is a distal duodenal diverticulum measuring 2.9 x 2.3 x 3.1 cm. Please see image 47 of series 3. Appendix: No evidence of appendicitis. Intraperitoneal space: There is mild pelvic ascites noted. Vasculature: Unremarkable. No abdominal aortic aneurysm. Lymph nodes: Unremarkable. No enlarged lymph nodes. Urinary bladder: Unremarkable as visualized. Reproductive: The patient is status post hysterectomy. Bones/joints: Unremarkable. No acute fracture. Soft tissues: Expected postsurgical changes are seen along the anterior abdominal/pelvic wall. IMPRESSION: 1. Status post hysterectomy with expected postoperative changes. 2. Mild pelvic ascites. 3. Multiple bilateral parapelvic renal cysts. There is mild fullness of the proximal collecting systems without evidence of a ureteral stone. 4. Duodenal diverticulum. COMMENTS: Consistent with the [employer]'s Incidental Findings Committee white paper (J Am Enma Radiol 2018): Any incidental renal lesion less than 1 cm or classified as too small to characterize, or any incidental cystic renal lesion characterized as simple-appearing, is likely benign. No follow-up imaging is recommended for these lesions per consensus recommendations based on imaging criteria.
--- NOTE | 2025-02-12 07:46 | CT_ITS ---
PROCEDURE INFORMATION: Exam: CTA Chest With Contrast Exam date and time: 02/12/2025 8:52 AM Age: 54 years old Clinical indication: Shortness of breath; Additional info: Difficulty breathing, back/flank pn following alvarado TECHNIQUE: Imaging protocol: Computed tomographic angiography of the chest with contrast. Exam focused on the arteries. 3D rendering (Not supervised by radiologist): MIP and/or 3D reconstructed images were created by the technologist. Radiation optimization: All CT scans at this facility use at least one of these dose optimization techniques: automated exposure control; mA and/or kV adjustment per patient size (includes targeted exams where dose is matched to clinical indication); or iterative reconstruction. Contrast material: ISOVUE 370; Contrast volume: 70 ml; Contrast route: INTRAVENOUS (IV); COMPARISON: CT THORACIC SPINE WO CON 02/12/2025 8:32 AM FINDINGS: Pulmonary arteries: Normal. No pulmonary emboli. Aorta: Unremarkable. No aortic aneurysm. No aortic dissection. Lungs: There is mild bibasilar atelectasis. Otherwise no suspicious infiltrates are identified. Pleural spaces: Unremarkable. No pneumothorax. No pleural effusion. Heart: Unremarkable. No cardiomegaly. No pericardial effusion. Lymph nodes: Unremarkable. No enlarged lymph nodes. Bones/joints: Unremarkable. No acute fracture. Soft tissues: Unremarkable. IMPRESSION: 1. Mild bibasilar atelectasis. 2. Otherwise no evidence of pulmonary embolism or acute pulmonary process.
--- NOTE | 2025-02-12 07:46 | CT_ITS ---
PROCEDURE INFORMATION: Exam: CT Lumbar Spine Without Contrast Exam date and time: 02/12/2025 8:48 AM Age: 54 years old Clinical indication: Low back pain; Additional info: Difficulty breathing, back/flank pn following alvarado TECHNIQUE: Imaging protocol: Computed tomography of the lumbar spine without contrast. Radiation optimization: All CT scans at this facility use at least one of these dose optimization techniques: automated exposure control; mA and/or kV adjustment per patient size (includes targeted exams where dose is matched to clinical indication); or iterative reconstruction. COMPARISON: CT THORACIC SPINE WO CON 02/12/2025 8:32 AM FINDINGS: Bones/joints: No acute fracture. Normal alignment. The disc spaces are maintained. There is mild multilevel spondylosis. L1-L2: No significant disc bulge or herniation. No severe spinal canal stenosis. No significant neural foraminal narrowing. L2-L3: No significant disc bulge or herniation. No severe spinal canal stenosis. No significant neural foraminal narrowing. L3-L4: There is minimal diffuse disc bulging without significant spinal canal or neural foraminal stenosis. L4-L5: There is mild diffuse disc bulging without significant spinal canal or neural foraminal stenosis. L5-S1: There is mild diffuse disc bulging without significant spinal canal or neural foraminal stenosis. Soft tissues: Unremarkable. IMPRESSION: Mild multilevel disc bulging. No significant spinal canal or neural foraminal stenosis.
--- NOTE | 2025-02-12 08:03 | ED_ITS ---
Discharge Plan Disposition Chief Complaint: Back Pain/Injury Prescriptions Prescriptions: No Action metformin 500 mg tablet 500 mg PO DAILY Qty: 90 2RF ciprofloxacin HCl 500 mg tablet 500 mg PO BID 7 Days Qty: 14 0RF Mounjaro 7.5 mg/0.5 mL pen injector 7.5 mg SQ WEEKLY Qty: 2 2RF rosuvastatin 20 mg tablet 20 mg PO DAILY Qty: 30 2RF ibuprofen 800 mg tablet See Rx Instructions .ROUTE .COMPLEX Qty: 90 2RF Dose Instruction: TAKE 1 TABLET BY MOUTH EVERY 8 HOURS NEEDED FOR PAIN Rx Instructions: TAKE 1 TABLET BY MOUTH EVERY 8 HOURS NEEDED FOR PAIN cholecalciferol (vitamin D3) 125 mcg (5,000 unit) tablet 125 mcg PO DAILY Qty: 30 5RF ezetimibe 10 mg tablet 10 mg PO DAILY Qty: 30 2RF dexamethasone 6 mg tablet 6 mg PO .every other day Qty: 2 0RF Rx Instructions: 6 mg orally every other day in the morning starting 02/11 lidocaine 5 % adhesive patch,medicated 1 patch topical DAILY Qty: 30 0RF Rx Instructions: leave on most painful area for up to 12 hrs Referrals Follow up/Referrals: Rachele Lopez APRN [Primary Care Provider] - See instructions Activity Restrictions/Add. Instructions Additional Instructions/Restrictions: As discussed after extensive workup and no definitive evidence for what is causing your symptoms. Specifically no evidence of any thoracic or lumbar spine abnormality no intra-abdominal pathology or intrathoracic pathology specifically no evidence of a blood clot. At the moment working diagnosis is a local complication from the epidural. Also as discussed we cannot rule out an epidural hematoma and given the fact that you are on anticoagulants this still remains on the differential however you have no symptoms suggesting that you have any type of spinal cord or nerve root compression therefore we did not pursue transfer and MRI this weekend. If you have any of those symptoms please go emergently to the emergency [facility] ER to be evaluated for possible MRI. Other than that no other emergent medical pathology identified today. You do have parapelvic kidney cysts but no evidence of any infection in this region. There is no evidence of a kidney stone or anything else to be causing hydronephrosis. Please follow-up closely with your gynecology oncology team as you and I discussed. Clinical Impressions Clinical Impression: Breathing difficulty, Flank pain, Parapelvic renal cyst Instructions Patient Instructions: DI for Low Back Pain Print Language Print Language: Georgian Discharge ED Provider: Lj Arteaga General Adult HPI General Chief complaint: Back Pain/Injury Stated complaint: back pain, soa, hysterectomy 02/03/25 Time Seen by Provider: 02/12/25 07:32 Mode of Arrival: Ambulatory Source of Information: Patient Description of Symptoms (Recalled from ER Triage Doc. by RN): pt suffering from back pain that radiates to the r side of her mid/lower back. had an open hysterectomy 1 week ago. currently on lovenox injections. History of Present Illness HPI narrative: Patient is a 54-year-old female presenting today with difficulty breathing and back/flank pain. She has a history of endometrial adenocarcinoma and is followed by gynecology oncology and radiation oncology in [facility] she is status post numerous radiation treatments and brachytherapy and recently underwent a total abdominal hysterectomy and bilateral salpingo-oophorectomy on 02/03/2025. She was started on therapeutic Lovenox transitioning to Eliquis. Patient is unaware of why she was put on prolonged anticoagulation and there is no documentation of this specifically in her chart from [facility]. Pathology did not yield any residual adenocarcinoma. Patient states that she had an epidural and ever since her epidural was taken out she has had significant pain she localizes to the mid thoracic and lateral flank area in the inferior margin of her rib cage. She is currently having significant difficulty breathing. Denies any fevers chills cough etc. Denies any changes in urination. She was here a few days ago was treated symptomatically without any imaging for similar symptoms. She states that the symptoms have only worsened since that time. Related Data Previous Rx's ?Medication ?Instructions ?Recorded metformin 500 mg tablet 500 mg PO DAILY #90 tabs 07/01/24 rosuvastatin 20 mg tablet 20 mg PO DAILY #30 tabs 09/21/24 ibuprofen 800 mg tablet See Rx Instructions .Route 12/23/24 .COMPLEX #90 tabs ciprofloxacin HCl 500 mg tablet 500 mg PO BID 7 days #14 tabs 01/05/25 tirzepatide 7.5 mg/0.5 mL 7.5 mg (0.5 mL) SQ WEEKLY #2 mL 01/05/25 subcutaneous pen injector (Isaiasunkaelro) cholecalciferol (vitamin D3) 125 125 mcg PO DAILY #30 tabs 01/06/25 mcg (5,000 unit) tablet ezetimibe 10 mg tablet 10 mg PO DAILY #30 tabs 01/06/25 dexamethasone 6 mg tablet 6 mg PO .every other day #2 tabs 02/09/25 lidocaine 5 % topical patch 1 patch topical DAILY #30 ea 02/09/25 Allergies Allergy/AdvReac Type Severity Reaction Status Date / Time No Known Allergies Allergy Verified 01/05/25 09:50 [facility] Disclaimer: The information contained in this section may have been updated after the patient was seen, as this information can be updated by other users. Medical History Menometrorrhagia TMJ tenderness, right Screening for malignant neoplasm of colon declined (~04/26/24) Breast screening declined (~04/26/24) Vitamin D deficiency Hyperlipidemia Type 2 diabetes mellitus without complications Sore throat Left serous otitis media Surgical History Hx of section Hx of eye surgery Social History (Updated 01/05/25 @ 09:51 by Sarah Guerrero MA) Smoking Status: Never smoker second hand exposure: No alcohol intake: never current occupational status: employed Travel in the last 8 weeks: None household members: spouse housing: house Have you lived/traveled outside [place] in past 30 days?: No Contact w/someone who lives/traveled outside US past 30 days?: No Exposure to someone with infectious disease in past 14 days?: No Do you have a fever (greater than 100.4 F or 38 C)?: No Have you tested positive for COVID-19: No Exposed to someone with COVID-19 in past 14 days?: No Do you have a sore throat?: No Do you have a cough?: No Do you have any weakness?: No Do you have any diarrhea?: No Are you experiencing any unusual bleeding?: No Do you have any muscle aches/pain?: Yes Do you have any abdominal pain?: No Are you experiencing loss of taste or smell?: No Other Medical History Have you received the Pneumonia Vaccine: No ROS Obtained: Yes All systems reviewed & no additional complaints except as documented Physical Exam General General appearance: alert and in no apparent distress Respiratory Respiratory exam: Present normal lung sounds bilaterally; Absent respiratory distress Cardiovascular Cardiovascular exam: Present regular rate and normal rhythm Back Exam Back exam: Present other (Epidural insertion site is well-healed no surrounding erythema warmth fluctuance etc. patient has significant tenderness over the right lateral flank/rib cage margin again no warmth erythema fluctuance etc. no midline back pain) Neurological Exam Neurological exam: Present alert and oriented X3 Medical Decision Making Medical Records Screening: Per USPSTF and CDC recommendations, given the prevalence of disease in our region, it is our hospital?s policy to screen for HIV and viral Hepatitis for all patients aged 18 and over and those with ongoing risk factors. Luis Inquiry Pt receiving controlled substance: No Vital Signs: 02/12/25 07:35 02/12/25 07:44 02/12/25 07:45 Temperature 97.6 F Temperature Source Oral Pulse Rate 81 83 Pulse Rate [Right] 80 Respiratory Rate 20 Blood Pressure 153/84 H 134/87 Blood Pressure [Right Arm] 153/84 H Blood Pressure Mean 112 Blood Pressure Mean [Right Arm] 107 02 Sat by Pulse Oximetry 98 99 99 Oxygen Delivery Method Room Air Room Air Room Air 02/12/25 08:07 02/12/25 08:16 02/12/25 08:30 Temperature Temperature Source Pulse Rate 83 80 78 Pulse Rate [Right] Respiratory Rate 15 Blood Pressure 136/83 147/84 H 155/96 H Blood Pressure [Right Arm] Blood Pressure Mean Blood Pressure Mean [Right Arm] 02 Sat by Pulse Oximetry 98 98 98 Oxygen Delivery Method Room Air Room Air Room Air 02/12/25 09:00 02/12/25 09:15 02/12/25 09:30 Temperature Temperature Source Pulse Rate 72 74 74 Pulse Rate [Right] Respiratory Rate 13 14 Blood Pressure 149/87 H 146/82 H 145/86 H Blood Pressure [Right Arm] Blood Pressure Mean 99 Blood Pressure Mean [Right Arm] 02 Sat by Pulse Oximetry 98 99 98 Oxygen Delivery Method Room Air Room Air Room Air 02/12/25 09:45 Temperature Temperature Source Pulse Rate 62 Pulse Rate [Right] Respiratory Rate 12 Blood Pressure 152/91 H Blood Pressure [Right Arm] Blood Pressure Mean Blood Pressure Mean [Right Arm] 02 Sat by Pulse Oximetry 99 Oxygen Delivery Method Room Air Lab Data Lab results reviewed: Yes I reviewed the patient's lab results. Lab Results 02/12/25 07:30: Urine Color Yellow, Urine Appearance Clear, Urine pH 6.0, Ur Specific [place] >= 1.030, Urine Protein Negative, Urine Glucose (UA) Negative, Urine Ketones Negative, Urine Blood Negative, Urine Nitrate Negative, Urine Bilirubin Negative, Urine Urobilinogen 0.2, Ur Leukocyte Esterase Negative, Urine RBC None, Urine WBC None, Ur Squamous Epith Cells 3-5, Urine Bacteria Trace 02/12/25 07:55: WBC 9.7, RBC 4.81, Hgb 10.4 L, Hct 36.3 L, MCV 75.5 L, MCH 21.6 L, MCHC 28.7 L, RDW 18.7 H, Plt Count 681 H, MPV 8.8, Neut % (Auto) 82.7 H, L ymph % (Auto) 9.1 L, Jennings % (Auto) 6.8, Eos % (Auto) 0.1, Baso % (Auto) 0.3, N eut # (Auto) 8.1 H, Lymph # (Auto) 0.9, Jennings # (Auto) 0.7, Eos # (Auto) 0.0, Baso # (Auto) 0.0, ESR 23, PT 9.8 L, INR 0.86 L, APTT 24.8, Sodium 139, Potassium 4.3, Chloride 109 H, Carbon Dioxide 22, Anion Gap 12.3, BUN 20 H, Creatinine 0.80, Estimated Creat Clear 115, Estimated GFR 75, Est GFR ( Amer) 90, Glucose 109 H, Calcium 10.8 H, Total Bilirubin 0.4, AST 22, ALT 29, Alkaline Phosphatase 79, Troponin I < 0.01, C-Reactive Protein 1.8, NT-Pro-B Natriuret Pep 83.4, Total Protein 7.1, Albumin 4.2, Globulin 2.9, Albumin/Globulin Ratio 1.4 02/12/25 07:55 02/12/25 07:55 Orders (Tests/Meds): ED MEDICATIONS Generic Name Dose Route Start Last Admin Trade Name Freq PRN Reason Stop Dose Admin Morphine Sulfate 4 mg 02/12/25 10:23 Morphine 4mg/Ml Syringe IV 02/12/25 10:24 ONCE ONE Sodium Chloride 10 ml 02/12/25 08:52 02/12/25 09:01 Sodium Chloride 0.9% 10ml Syr (Rad Only) IV 03/14/25 08:51 10 ml NEEDED PRN Administration Maintain IV Site Discontinued Medications Generic Name Dose Route Start Last Admin Trade Name Tania PRN Reason Stop Dose Admin Lactated Ringer's 1,000 mls @ 999 mls/hr 02/12/25 08:00 02/12/25 08:04 Lactated Ringer's 1000 Ml Bag IV 02/12/25 09:00 999 mls/hr .Q1H1M ELICIA Administration Iopamidol 70 ml 02/12/25 08:52 02/12/25 09:01 Iopamidol-370 (76%);100ml Bottle IV 02/12/25 08:53 70 ml ONCE ONE Administration Morphine Sulfate 4 mg 02/12/25 08:08 02/12/25 08:10 Morphine 4mg/Ml Syringe IV 02/12/25 08:09 4 mg ONCE ONE Administration Ondansetron HCl 4 mg 02/12/25 07:46 02/12/25 08:04 Ondansetron 4mg/2ml Vial IV 02/12/25 07:47 4 mg ONCE ONE Administration Sodium Chloride 50 ml 02/12/25 08:52 02/12/25 08:55 0.9 % Sodium Chloride 50 Ml Vial IV 02/12/25 08:53 50 ml ONCE ONE Administration ORDERS Category Date Time Status CT abdomen pelvis w con Stat Cat Scan 02/12/25 07:[address] angio chest PE protocol Stat Cat Scan 02/12/25 07:[address] lumbar spine wo con Stat Cat Scan 02/12/25 07:[address] thoracic spine wo con Stat Cat Scan 02/12/25 07:46 Completed BNP [NT Pro Brain Natriuretic Pep.] Stat Lab 02/12/25 07:55 Completed CBC w/Auto Diff [Complete Blood Count Auto Diff] Stat Lab 02/12/25 07:55 Completed CMP [Comprehensive Metabolic Panel] Stat Lab 02/12/25 07:55 Completed CRP [C-Reactive Protein] Stat Lab 02/12/25 07:55 Completed ESR [Erythrocyte Sedimentation Rate] Stat Lab 02/12/25 07:55 Completed PT/PTT Stat Lab 02/12/25 07:55 Completed Trop I [Troponin I] Stat Lab 02/12/25 07:55 Completed Troponin I Q3H Lab 02/12/25 11:00 Ordered Troponin I Q3H Lab 02/12/25 14:00 Ordered UA [Urinalysis and Microscopic] Stat Lab 02/12/25 07:30 Completed Medical Decision Narrative: 54-year-old with a history of endometrial adenocarcinoma status post total abdominal hysterectomy and bilateral salpingo-oophorectomy on therapeutic anticoagulation presents today with difficulty breathing and flank/back pain. Differential is broad which includes surgical complication such as hematoma formation abscess in addition to epidural complication such as epidural hematoma epidural abscess also pulmonary embolism remains in the differential as patient seems to be high risk given the fact that they started the patient's on therapeutic anticoagulation or extending this out with oral Eliquis. Therefore CT PE CT abdomen pelvis and spine CTs will be ordered. Pain medication have been administered and will reassess shortly. Reassessment 10:25 AM patient states that she is feeling much better but her pain is starting to come back she improved significantly on morphine. She also states that she did not take any pain medicine upon being discharged from the hospital is possible she is simply having postoperative complications and did not take appropriate pain medication after recently being discharged. CT scans were performed which I personally interpreted this includes the chest abdomen and pelvis and thoracic and lumbar spine. Namely there is no evidence of any cardiopulmonary emergency including pneumonia pulmonary embolism etc. There is also nothing in the flank region to suggest a definitive cause of her symptoms. No hematoma abscess or inflammatory process around the kidneys. She did have some parapelvic cysts bilaterally no evidence of hydronephrosis or obstructive uropathy or distal mass or kidney stones. Urinalysis was also unremarkable so she does not have any signs or symptoms of pyelonephritis. Inflammatory markers were very low which suggest that this is not consistent with an epidural abscess. The 1 thing I cannot definitively rule out is an epidural hematoma but her pain is lateral she has no radicular symptoms and has no neurologic complaints is also the weekend we do not have capabilities of getting an MRI and would have to transfer her to get this test done and right now that does not seem necessary she has been given return precautions that are very strict if she develops any neurologic symptoms whatsoever. She understands there is some diagnostic uncertainty but working diagnosis at the moment is simply a localized complication of her recent epidural with inadequate pain control. This far out I am not can prescribe opiates she has been advised to take [id number] medications. She is also been advised to call her gynecology oncology team for close outpatient follow-up and return precautions were also emphasized as discussed. Critical Care Critical Care Time Critical Care Time: Yes Attestation: On 02/12/25, the high probability of a clinically significant, sudden or life threatening deterioration of the following system(s) required my full and direct attention, intervention and personal management. The time I documented below is in addition to time spent performing reported procedures but includes the following listed in this critical care notation. Total Time Total Critical Care Time: 35
[2025-02-12] MEDS: LACTATED RINGERS 1000ML 1,000 ML 999 ML IV (08:04)
[2025-02-12] MEDS: ONDANSETRON 4MG/2ML VIAL 4 MG IV (08:04)
[2025-02-12] MEDS: MORPHINE 4MG/ML SYRINGE 4 MG IV ×2 (08:10→10:35)
[2025-02-12 08:12] LABS: Basophils % 0.3 % (0.1-2.0); Eosinophils % 0.1 % (0.1-12.0); Hematocrit 36.3 % (37.0-47.0); Hemoglobin 10.4 g/dL (12.2-16.2); Lymphocytes # 0.9 K/mm3 (0.7-4.5); Lymphocytes % 9.1 % (10-50); Mean Corpuscular HGB Conc 28.7 g/dL (31.8-35.4); Mean Corpuscular Hemoglobin 21.6 pg (27.0-31.2); Mean Corpuscular Volume 75.5 fl (81-99); Mean Platelet Volume 8.8 fl (7.4-10.4); Monocytes # 0.7 K/mm3 (0.1-1.0); Monocytes % 6.8 % (1.7-9.3); Neutrophils # 8.1 K/mm3 (1.8-7.8); Neutrophils % 82.7 % (37.0-80.0); Nucleated Red Blood Cells # 0 10^3/uL; Nucleated Red Blood Cells % 0 %; Platelet Count 681 K/mm3 (142-424); Red Blood Count 4.81 M/mm3 (4.20-5.40); Red Cell Distribution Width 18.7 % (11.5-17.5); Red Cell Distribution Width-SD 51.6 fL; White Blood Count 9.7 K/mm3 (4.8-10.8)
--- NOTE | 2025-02-12 08:19 | ECG_ITS ---
APPROVED REPORT Exam: Resting ECG HR:67 bpm ECG Measurements Heart Rate 67 AXES [place] 143 P 44 QRSd 78 QRS 38 QT 361 T 37 QTc 377 Conclusion SINUS RHYTHM LOW QRS VOLTAGE IN PRECORDIAL LEADS [QRS DEFLECTION < 1.0 mV IN CHEST LEADS] BORDERLINE ECG UNCONFIRMED REPORT Electronically signed by : Migel Arteaga, 02/12/2025 15:40:27
[2025-02-12 08:20] LABS: Alanine Aminotransferase 29 U/L (12-78); Albumin Level 4.2 g/dl (3.5-5.0); Albumin/Globulin Ratio 1.4 (1.1-1.8); Alkaline Phosphatase 79 U/L (38-126); Anion Gap 12.3 mEq/L (5-15); Aspartate Amino Transferase 22 U/L (14-36); Bilirubin,Total 0.4 mg/dl (0.2-1.3); Blood Urea Nitrogen 20 mg/dl (7-17); Calcium 10.8 mg/dl (8.4-10.2); Carbon Dioxide 22 mmol/L (22.0-30.0); Chloride 109 mmol/L (98-107); Creatinine Clearance Estimated 115 mL/min (50-200); Estimated Glomerular Filt Rate 75 ml/min (>60); GFR (African American) 90 ML/MIN (>60); Globulin 2.9 g/dL (1.3-3.2); Glucose 109 mg/dl (74-100); Potassium 4.3 mmoL/L (3.5-5.1); Sodium 139 mmol/L (136-145); Total Protein,Serum 7.1 g/dl (6.3-8.2)
[2025-02-12 08:22] LABS: Activated Partial Thrombo Time 24.8 seconds (22.8-30.6); INR 0.86 (0.9-1.1); Prothrombin Time 9.8 seconds (10.1-12.5)
[2025-02-12 08:24] LABS: C-Reactive Protein 1.8 mg/L (0-4)
[2025-02-12 08:28] LABS: NT Pro Brain Natriuretic Pep. 83.4 pg/mL (0-125)
[2025-02-12 08:34] LABS: Erythrocyte Sedimentation Rate 23 mm/hr (0-30); Troponin I < 0.01 ng/ml (0.00-0.034)
[2025-02-12] MEDS: 0.9 % SODIUM CHLORIDE 50 ML VIAL IV (08:55)
[2025-02-12] MEDS: SODIUM CHLORIDE 0.9% 10ML SYR (RAD ONLY) 10 ML IV (09:01)
[2025-02-12] MEDS: IOPAMIDOL-370 (76%);100ML BOTTLE 70 ML IV (09:01)
[2025-02-12 09:27] LABS: Microscopic, Urine URINE MICROSCOPIC (MICROSCOPIC)
[2025-02-12 09:32] LABS: Appearance,Urine CLEAR (Clear); Bilirubin,Urine Negative (Negative); Blood, Urine Negative (Negative); Color,Urine YELLOW (Yellow); Glucose,Urine (UA) Negative (Negative); Ketones,Urine Negative (Negative); Leukocyte Esterase,Urine Negative (Negative); Nitrate,Urine Negative (Negative); Protein,Urine Negative (Negative); Specific Gravity, Urine >= 1.030 (1.005-1.030); Urobilinogen,Urine 0.2 EU/dl (0.2)
[2025-02-12 10:05] LABS: Bacteria,Urine Trace /lpf
== END 2025-02-12 10:50 | disposition home or self-care (01) ==
LOC: ER 07:35
PROVIDERS: Emergency Provider Student in an Organized Health Care Education/Training Program; PCP Nurse Practitioner
DX: R06.02 Shortness of breath (principal); M54.6 Pain in thoracic spine; M54.59 Other low back pain; N28.1 Cyst of kidney, acquired
CPT/HCPCS: 71275; 72128; 72131; 74177; 80053; 81001; 83880; 84484; 85025; 85610; 85651; 85730; 86140; 93005; 96361; 96374; 96375; 96376; 99291; J2270; J2405; J7120; Q9967

== ENCOUNTER 2025-08-31 08:55 | Outpatient (CLI) | payer OTHER, SELFPAY ==
[2025-08-31 16:24] LABS: Alanine Aminotransferase 18 U/L (12-78); Albumin Level 4.2 g/dl (3.5-5.0); Albumin/Globulin Ratio 1.6 (1.1-1.8); Alkaline Phosphatase 105 U/L (38-126); Anion Gap 10.2 mEq/L (5-15); Aspartate Amino Transferase 21 U/L (14-36); Bilirubin,Total 0.5 mg/dl (0.2-1.3); Blood Urea Nitrogen 13 mg/dl (7-17); Calcium 10.4 mg/dl (8.4-10.2); Carbon Dioxide 27 mmol/L (22.0-30.0); Chloride 104 mmol/L (98-107); Cholesterol 242 mg/dl (140-200); Creatinine,Serum 1.00 mg/dl (0.52-1.04); Estimated Glomerular Filt Rate 58 ml/min (>60); GFR (African American) 70 ML/MIN (>60); Globulin 2.6 g/dL (1.3-3.2); Glucose 91 mg/dl (74-100); HDL Cholesterol 48 mg/dl (40-60); Potassium 4.2 mmoL/L (3.5-5.1); Sodium 137 mmol/L (136-145); Total Protein,Serum 6.8 g/dl (6.3-8.2); Triglycerides 176 mg/dl (30-150)
[2025-08-31 16:40] LABS: Hemoglobin A1C 5.6 % (4.0-6.0)
[2025-08-31 16:44] LABS: 25-OH Vitamin D, Total 16.8 ng/mL (30-100)
== END 2025-08-31 23:59 ==
LOC: LAB.DROPOF 09-01 10:40
PROVIDERS: PCP Nurse Practitioner; Visit Provider Nurse Practitioner
DX: E55.9 Vitamin D deficiency, unspecified (principal); E11.9 Type 2 diabetes mellitus without complications; E78.5 Hyperlipidemia, unspecified
CPT/HCPCS: 80053; 80061; 82043; 82306; 82570; 83036